=== PATIENT | male | born 2000 | race Caucasian/White ===

== ENCOUNTER 2018-11-25 01:07 | Emergency (ER) | payer OTHER ==
[~2018-11-25] VITALS: Ht 182.9 cm; Wt 77.1 kg
[2018-11-25 01:10] VITALS: BP_SYST 160
[2018-11-25 01:43] VITALS: BP_SYST 152
== END 2018-11-25 01:43 | disposition home or self-care (01) ==
LOC: SED 01:07
DX: Z02.89 Encounter for other administrative examinations (principal); F41.9 Anxiety disorder, unspecified
CPT/HCPCS: 99283